=== PATIENT | female | born 1985 | race Caucasian/White ===

== ENCOUNTER 2020-09-26 18:05 | Emergency (ER) | payer OTHER ==
[~2020-09-26] VITALS: Ht 170.2 cm; Wt 72.6 kg
[~2020-09-26 18:05] MED LIST: DOXYCYCLINE 10100 MG PO; TORADOL 10 MG T10 MG PO; ZOFRAN4 MG PO
[2020-09-26] MEDS ORDERED: FLEXERIL PO (19:58)
[2020-09-26] MEDS ORDERED: IBUPROFEN 800800 M1 PO (19:58)
[2020-09-26 20:16] VITALS: BP 122/74
== END 2020-09-26 20:16 | disposition home or self-care (01) ==
LOC: M.ERS 18:05
DX: S63.8X1A Sprain of other part of right wrist and hand, initial encounter (principal); F17.210 Nicotine dependence, cigarettes, uncomplicated; Z88.5 Allergy status to narcotic agent; Z88.8 Allergy status to other drugs, medicaments and biological substances; X50.1XXA Overexertion from prolonged static or awkward postures, initial encounter; Y93.89 Activity, other specified; Y92.89 Other specified places as the place of occurrence of the external cause; Y99.8 Other external cause status